=== PATIENT | female | born 1980 | race African-American/Black ===

== ENCOUNTER 2022-07-09 19:05 | Emergency (ER) | payer SELFPAY ==
[~2022-07-09] VITALS: Ht 172.7 cm; Wt 150.0 kg
[2022-07-09 21:43] VITALS: BP 115/78
== END 2022-07-09 21:45 | disposition home or self-care (01) ==
LOC: ER 19:05
DX: B34.9 Viral infection, unspecified (principal); Z90.49 Acquired absence of other specified parts of digestive tract; Z98.890 Other specified postprocedural states
CPT/HCPCS: 99281

== ENCOUNTER 2022-11-21 14:07 | Emergency (ER) | payer MEDICAID ==
[~2022-11-21] VITALS: Ht 172.7 cm; Wt 113.0 kg
[2022-11-21 14:27] VITALS: BP 172/103
[2022-11-21 17:32] LABS: CLARITY URINE CLEAR (CLEAR); COLOR URINE YELLOW (YELLOW); KETONES URINE NEGATIVE (NEGATIVE); LEUKOCYTE ESTERASE URINE NEGATIVE (NEGATIVE); NITRITE URINE NEGATIVE (NEGATIVE); OCCULT BLOOD URINE NEGATIVE (NEGATIVE); PH URINE 6.5 (4.5-8.0); PROTEIN URINE NEGATIVE (NEGATIVE); SPECIFIC GRAVITY URINE 1.015 (1.005-1.030)
[2022-11-21] MEDS ORDERED: IBUP-2028 MT (17:51)
== END 2022-11-21 18:31 | disposition home or self-care (01) ==
LOC: ER 14:07
DX: R05.9 Cough, unspecified (principal); B34.9 Viral infection, unspecified; N89.8 Other specified noninflammatory disorders of vagina; Z20.822 Contact with and (suspected) exposure to COVID-19; Z98.890 Other specified postprocedural states
CPT/HCPCS: 71045; 81003; 81025; 87426; 99284; C9803; Z7610